=== PATIENT | female | born 1945 | race Caucasian/White ===

== ENCOUNTER 2017-06-04 19:32 | Inpatient (IN) | payer OTHER ==
[~2017-06-04] VITALS: Ht 152.4 cm; Wt 61.2 kg
[2017-06-04 19:33] VITALS: BP 145/85
[2017-06-04 20:23] LABS: ABSOLUTE NEUTROPHILS 6.7 thou/uL (1.4-8.2); BASOPHILS 0.4 % (0.0-2.0); EOSINOPHILS 1.6 % (0.0-3.0); HEMATOCRIT 40.7 % (37.0-47.0); HEMOGLOBIN 14.1 gm/dL (12.0-15.0); LYMPHOCYTES 24.1 % (24.0-44.0); MCH 30.7 pg (26.0-34.0); MCHC 34.7 g/dL (28.0-37.0); MCV 88.4 fL (80.0-100.0); MONOCYTES 6.3 % (1.0-8.0); PLATELET COUNT 321 thou/uL (150-400); POLYS 67.6 % (36.0-66.0); RBC 4.61 mil/uL (4.20-5.00); RDW 14.5 % (10.5-14.5); WBC 9.8 thou/uL (4.0-11.0)
[2017-06-04 20:27] LABS: MANUAL DIFF NO
[2017-06-04 21:19] LABS: URINE BILIRUBIN NEGATIVE (Negative); URINE BLOOD TRACE (Negative); URINE COLOR YELLOW; URINE GLUCOSE-RANDOM* NEGATIVE (Negative); URINE KETONES TRACE (Negative); URINE LEUKOCYTES-REFLEX NEGATIVE (Negative); URINE PROTEIN (DIPSTICK) NEGATIVE (Negative); URINE UROBILINOGEN 0.2 E.U./dl (0.2-1.0)
[2017-06-04 21:25] LABS: ANION GAP 7 mmol/L (7-16); BUN 10 mg/dL (7-18); CALCIUM 6.6 mg/dL (8.5-10.1); CHLORIDE 109 mmol/L (98-107); CO2 24 mmol/L (21-32); CREATININE 0.6 mg/dL (0.6-1.0); GLUCOSE 99 mg/dL (74-106); POTASSIUM 3.8 mmol/L (3.5-5.1); SODIUM 140 mmol/L (136-145)
[2017-06-04 21:29] LABS: ALBUMIN 2.6 g/dL (3.4-5.0); ALKALINE PHOSPHATASE 101 U/L (46-116); DIRECT BILIRUBIN < 0.1 mg/dL (<0.1-0.3); MAGNESIUM 1.3 mg/dL (1.8-2.4); SGOT 18 U/L (15-37); SGPT < 6 U/L (30-65); TOTAL BILIRUBIN 0.2 mg/dL (<0.1-1.0); TOTAL PROTEIN 5.3 g/dL (6.4-8.2)
[2017-06-04] MEDS ORDERED: EFFEXOR XR150 MG PO (22:46)
[2017-06-04] MEDS ORDERED: PROPRANOLOL 1010 MG PO (22:48)
[2017-06-04] MEDS ORDERED: AMANTADINE100 M1 PO (22:54)
[2017-06-04] MEDS ORDERED: ALPRAZOLAM 0.50.5 MG PO (22:54)
[2017-06-04] MEDS ORDERED: TRAZODONE HCL100 MG PO (22:55)
[2017-06-04] MEDS ORDERED: ZYPREXA5 MG PO (22:56)
[2017-06-04] MEDS ORDERED: [UNRECOGNIZED DRUG - OTHER] PO (22:56)
[2017-06-04 23:35] VITALS: BP 120/75
[2017-06-04 23:45] VITALS: BP 134/84
[2017-06-05 04:00] VITALS: BP 107/59
[2017-06-05 05:42] LABS: CREATININE 0.7 mg/dL (0.6-1.0); MAGNESIUM 2.4 mg/dL (1.8-2.4); POTASSIUM 3.8 mmol/L (3.5-5.1)
[2017-06-05 05:44] LABS: CALCIUM 8.7 mg/dL (8.5-10.1)
[2017-06-05 07:47] VITALS: BP 116/72
[2017-06-05 16:28] VITALS: BP 122/73
[2017-06-05 19:21] VITALS: BP 109/63
[2017-06-06 03:48] LABS: ABSOLUTE NEUTROPHILS 5.8 thou/uL (1.4-8.2); HEMATOCRIT 37.6 % (37.0-47.0); HEMOGLOBIN 12.8 gm/dL (12.0-15.0); MCH 30.1 pg (26.0-34.0); MCV 88.5 fL (80.0-100.0); MONOCYTES 1.3 % (1.0-8.0); PLATELET COUNT 307 thou/uL (150-400); POLYS 83.7 % (36.0-66.0); RBC 4.25 mil/uL (4.20-5.00); RDW 14.8 % (10.5-14.5)
[2017-06-06 03:59] LABS: CALCIUM 8.8 mg/dL (8.5-10.1); CREATININE 0.7 mg/dL (0.6-1.0); POTASSIUM 4.1 mmol/L (3.5-5.1)
[2017-06-06 04:06] LABS: MANUAL DIFF NO
[2017-06-06 05:05] VITALS: BP 128/71
[2017-06-06 08:23] VITALS: BP 103/55
[2017-06-06 16:27] VITALS: BP 104/63
[2017-06-06 19:39] VITALS: BP 115/95
[2017-06-07 04:02] VITALS: BP 118/67
[2017-06-07 04:25] LABS: ABSOLUTE NEUTROPHILS 7.1 thou/uL (1.4-8.2); BASOPHILS 0.1 % (0.0-2.0); HEMATOCRIT 37.5 % (37.0-47.0); HEMOGLOBIN 12.5 gm/dL (12.0-15.0); LYMPHOCYTES 12.2 % (24.0-44.0); MCH 30.2 pg (26.0-34.0); MCHC 33.4 g/dL (28.0-37.0); MCV 90.2 fL (80.0-100.0); MONOCYTES 2.2 % (1.0-8.0); PLATELET COUNT 284 thou/uL (150-400); POLYS 85.5 % (36.0-66.0); RBC 4.15 mil/uL (4.20-5.00); RDW 15.1 % (10.5-14.5); WBC 8.3 thou/uL (4.0-11.0)
[2017-06-07 04:36] LABS: MANUAL DIFF NO
[2017-06-07 04:42] LABS: CALCIUM 8.8 mg/dL (8.5-10.1); CREATININE 0.9 mg/dL (0.6-1.0); POTASSIUM 4.3 mmol/L (3.5-5.1)
[2017-06-07 08:00] VITALS: BP 125/75
[2017-06-07] MEDS ORDERED: AZITHROMYCIN 2250 MG PO (12:16)
[2017-06-07 12:37] VITALS: BP 125/75
== END 2017-06-07 13:46 | disposition home or self-care (01) | DRG 871 ==
LOC: ER 19:32 → 4S 22:34 → EROBS 22:34 → 4S 23:35
PROVIDERS: Emergency Medicine; Family Medicine; Nurse Practitioner
DX: A41.9 Sepsis, unspecified organism (principal); J18.9 Pneumonia, unspecified organism; J96.21 Acute and chronic respiratory failure with hypoxia; E83.42 Hypomagnesemia; G35 Multiple sclerosis; J45.909 Unspecified asthma, uncomplicated; E86.0 Dehydration; F41.9 Anxiety disorder, unspecified; Z60.2 Problems related to living alone; R13.10 Dysphagia, unspecified; Z79.899 Other long term (current) drug therapy; Z91.041 Radiographic dye allergy status
CPT/HCPCS: 10100

== ENCOUNTER → 2017-06-30 | Outpatient (CLI) | payer OTHER ==
[~2017-06-30] MED LIST: ALPRAZOLAM 0.50.5 MG PO; AMANTADINE100 M1 PO; AZITHROMYCIN 2250 MG PO; EFFEXOR XR150 MG PO; PROPRANOLOL 1010 MG PO; TRAZODONE HCL100 MG PO; ZYPREXA5 MG PO; [UNRECOGNIZED DRUG - OTHER] PO
== END ==
LOC: RAD 12:27
DX: J18.9 Pneumonia, unspecified organism (principal)